=== PATIENT | female | born 1980 | race Two or more races ===

== ENCOUNTER 2021-10-12 20:00 | Emergency (ER) | payer OTHER ==
[2021-10-12 20:07] VITALS: BP 107/66; PULSE 67; TEMP 98.2; BMI 36.0
[2021-10-12] MEDS ORDERED: ACETAMINOPHEN 325 MG TABLET (FP) PO ONE (21:10)
[2021-10-12] MEDS ORDERED: ACETAMINOPHEN 325 MG TABLET (FP) ONE (21:29)
[2021-10-12 21:54] LABS: BASO % 0.9 % (0-2.0); EOS % 2.2 % (0-4.5); HEMATOCRIT 39.2 % (32.4-45.2); LYMPH % 40.7 % (8-40); MCH 30.1 pg (25.7-33.7); MCHC 33.1 g/dl (32.0-36.0); MEAN PLT VOLUME 8.5 fl (7.5-11.1); MONO % 12.2 % (3.8-10.2); PLATELET COUNT 288 10^3/uL (134-434); RBC 4.31 M/mm3 (3.60-5.2); RDW 12.3 % (11.6-15.6); WHITE BLOOD COUNT 5.6 K/mm3 (4.0-10.0)
[2021-10-12 22:11] LABS: CHLORIDE 106 mmol/L (98-107); SODIUM 139 mmol/L (136-145)
[2021-10-12 22:15] LABS: ALBUMIN 3.7 g/dl (3.4-5.0); ANION GAP 5 MMOL/L (8-16); BLOOD UREA NITROGEN 16.1 mg/dL (7-18); CO2 28 mmol/L (21-32); GLUCOSE,RANDOM 78 mg/dL (74-106)
[2021-10-12 22:17] LABS: CREATININE 0.8 mg/dL (0.55-1.3); SGOT/AST 17 U/L (15-37); SGPT/ALT 22 U/L (13-61)
[2021-10-12 22:19] LABS: BILIRUBIN,TOTAL 0.3 mg/dL (0.2-1); TOT PROT 7.7 g/dl (6.4-8.2)
[2021-10-12 22:21] LABS: ALK PHOS 52 U/L (45-117)
[2021-10-12 22:49] LABS: EPI CELLS 16 /uL (0-25.1); HYALINE CASTS 1 /uL (0-3.1); URINE APPEARANCE CLEAR; URINE BACTERIA 325 /uL (0-1359); URINE BILIRUBIN NEGATIVE (NEGATIVE); URINE COLOR YELLOW; URINE GLUCOSE (UA) NEGATIVE (NEGATIVE); URINE KETONE NEGATIVE (NEGATIVE); URINE LEUK ESTERASE NEGATIVE (NEGATIVE); URINE NITRITE NEGATIVE (NEGATIVE); URINE PROTEIN NEGATIVE (NEGATIVE); URINE RBC 977 /uL (0-23.9); URINE UROBILINOGEN 0.2 mg/dL (0.2-1.0); URINE WBC 12 /uL (0-25.8)
== END 2021-10-12 23:15 | disposition home or self-care (01) ==
LOC: JER 20:00
DX: N93.9 Abnormal uterine and vaginal bleeding, unspecified (principal)
CPT/HCPCS: 36415; 76830-TC; 80053; 81003; 84702; 85025; 86850; 86900; 86901; 99284-25

== ENCOUNTER 2022-12-01 03:54 | Day surgery (SDC) | payer OTHER ==
[2022-11-29 10:53] VITALS: BMI 38.5
[2022-12-01] MEDS ORDERED: PROPOFOL 20 ML ONE (14:03)
[2022-12-01] MEDS ORDERED: LIDOCAINE HCL/PF 2% SDV 5ML VIAL ONE (14:03)
[2022-12-01] MEDS ORDERED: DEXAMETHASONE SOD PHOSPHATE 4 MG/1 ML VIAL ONE (14:03)
[2022-12-01] MEDS ORDERED: ONDANSETRON 4 MG/2 ML VIAL ONE ×2 (14:03→16:57)
[2022-12-01] MEDS ORDERED: KETOROLAC TROMETHAMINE 30 MG/1 ML VIAL ONE (14:05)
[2022-12-01] MEDS ORDERED: oxyCODONE HCL 5 MG TABLET PO PRN ×3 (14:08→15:50)
[2022-12-01] MEDS ORDERED: ONDANSETRON 4 MG/2 ML VIAL IVPUSH PRN ×2 (14:08→15:50)
[2022-12-01] MEDS ORDERED: ACETAMINOPHEN 1000 MG/100 ML BAG IVPB PRN (14:09)
[2022-12-01] MEDS ORDERED: LACTATED RINGERS SOLUTION 1,000 ML IV SCH (14:15)
[2022-12-01] MEDS ORDERED: ceFAZolin SODIUM 1 GM VIAL ONE (14:52)
[2022-12-01] MEDS ORDERED: ceFAZolin SODIUM 1 GM VIAL IVPB ONE (15:00)
[2022-12-01] MEDS ORDERED: IBUPROFEN 600 MG TABLET (FP) PO PRN (15:50)
[2022-12-01] MEDS ORDERED: IBUPROFEN 800 MG/8 ML IJ IVPB PRN (15:50)
[2022-12-01] MEDS ORDERED: ELECTROLYTE-148 SOLN 1,000 ML IV SCH (16:00)
[2022-12-01 16:43] VITALS: PULSE 60
[2022-12-01] MEDS ORDERED: ONDANSETRON 4 MG/2 ML VIAL IVPUSH ONE (17:03)
[2022-12-01 18:31] VITALS: BP 107/67; RESP 18; TEMP 97.6
== END 2022-12-01 18:45 | disposition home or self-care (01) ==
LOC: JASU-SURG 03:54
PROVIDERS: ATTEND Obstetrics & Gynecology
PROC: 0UB98ZZ Excision of Uterus, Via Natural or Artificial Opening Endoscopic (ICD-10-PCS; principal; 2022-12-01 14:00)
PROC: 0UH97HZ Insertion of Contraceptive Device into Uterus, Via Natural or Artificial Opening (ICD-10-PCS; 2022-12-01 14:00)
DX: N92.0 Excessive and frequent menstruation with regular cycle (principal); D25.0 Submucous leiomyoma of uterus; D64.9 Anemia, unspecified
CPT/HCPCS: 81025; 88305-TC; 94760

== ENCOUNTER 2022-12-06 18:23 | Emergency (ER) | payer OTHER ==
[2022-12-06 18:29] VITALS: BP 130/82; PULSE 74; RESP 18; TEMP 97.8; BMI 37.5
[2022-12-06 19:53] LABS: BASO % 1.1 % (0-2.0); EOS % 3.2 % (0-4.5); HEMATOCRIT 33.2 % (32.4-45.2); LYMPH % 31.2 % (8-40); MCH 26.6 pg (25.7-33.7); MEAN CELL VOLUME 80.6 fl (80-96); MONO % 9.5 % (3.8-10.2); PLATELET COUNT 338 10^3/uL (134-434); RBC 4.12 M/mm3 (3.60-5.2); RDW 13.7 % (11.6-15.6); WHITE BLOOD COUNT 5.9 K/mm3 (4.0-10.0)
[2022-12-06 20:00] LABS: INR 1.08 (0.83-1.09); PROTHROMBIN TIME (PATIENT) 12.5 SEC (9.7-13.0)
[2022-12-06 20:21] LABS: CALCIUM 8.7 mg/dL (8.5-10.1)
[2022-12-06 20:22] LABS: ALBUMIN 3.7 g/dl (3.4-5.0); BLOOD UREA NITROGEN 9.1 mg/dL (7-18); MAGNESIUM 1.7 mg/dL (1.8-2.4)
[2022-12-06 20:25] LABS: CREATININE 0.6 mg/dL (0.55-1.3)
[2022-12-06 20:27] LABS: BILIRUBIN,TOTAL 0.2 mg/dL (0.2-1); TOT PROT 7.7 g/dl (6.4-8.2)
== END 2022-12-06 22:42 | disposition home or self-care (01) ==
LOC: JER 18:23
DX: R07.89 Other chest pain (principal)
CPT/HCPCS: 36415; 71046-TC-FY; 71275-TC; 80053; 83735; 84484; 85025; 85379; 85610; 93005; 93010; 99285-25; Q9967

== ENCOUNTER 2024-01-22 18:02 | Emergency (ER) | payer OTHER ==
[2024-01-22 18:12] VITALS: BP 106/60; PULSE 69; RESP 17; TEMP 98.3; BMI 36.0
[2024-01-22] MEDS ORDERED: diphenhydrAMINE HCL 25 MG CAPSULE (FP) PO ONE (19:14)
[2024-01-22] MEDS ORDERED: METOCLOPRAMIDE HCL INJECTION 10 MG/2 ML VIAL ONE (19:14)
[2024-01-22] MEDS ORDERED: ACETAMINOPHEN INJECTION 100 ML IVPB ONE (19:16)
[2024-01-22] MEDS: ACETAMINOPHEN 1000 MG/100 ML BAG IVPB ONE (19:19)
[2024-01-22] MEDS: diphenhydrAMINE HCL 25 MG CAPSULE (FP) PO ONE (19:19)
[2024-01-22] MEDS: METOCLOPRAMIDE HCL INJECTION 10 MG/2 ML VIAL IVPUSH ONE (19:19)
[2024-01-22] MEDS: SODIUM CHLORIDE 1,000 ML IV STA (19:19)
== END 2024-01-22 20:33 | disposition home or self-care (01) ==
LOC: JER 18:02
PROC: 3E030NZ Introduction of Analgesics, Hypnotics, Sedatives into Peripheral Vein, Open Approach (ICD-10-PCS; principal; 2024-01-22)
PROC: 3E030GC Introduction of Other Therapeutic Substance into Peripheral Vein, Open Approach (ICD-10-PCS; 2024-01-22)
PROC: 3E0337Z Introduction of Electrolytic and Water Balance Substance into Peripheral Vein, Percutaneous Approach (ICD-10-PCS; 2024-01-22)
DX: R51.9 Headache, unspecified (principal); R68.84 Jaw pain
CPT/HCPCS: 84703; 99284-25; J0131